=== PATIENT | male | born 1985 | race American Indian/Alaskan Native ===

== ENCOUNTER 2018-01-30 14:04 | Emergency (ER) | payer SELFPAY ==
[2018-01-30 16:32] VITALS: BP 137/87
[2018-01-30] MEDS ORDERED: NORCO 5/325 PO ONE (17:50)
[2018-01-30] MEDS ORDERED: TORADOL IM ONE (17:50)
--- NOTE | 2018-01-30 17:55 | Emergency Department Report ---
HPI - General Chief Complaint: Extremity Injury, Lower - HPI HPI: The patient is 32 yo male whom presents for evaluation of back pain. The patient reports left lower back pain since 11 AM this morning, moderate to severe, sharp in quality, radiating to the left leg, exacerbated with ambulation. The patient denies blunt trauma to the back, fall, fever, chills, night sweats, saddle anesthesia, paresthesias, numbness or tingling in the legs , leg weakness, urine or bowel incontinence or retention, difficulty ambulating , or other focal neurological deficits. The patient also denies redness or swelling to the back, IV drug use, history of cancer. ED Past Medical Hx - Past Medical History Previous Medical History?: No - Surgical History Past Surgical History?: No - Social History Smoking Status: Never Smoker - Medications Home Medications: Home Medications Medication Instructions Recorded Confirmed Last Taken Type Acetaminophen/Codeine [Tylenol #3] 1 tab PO Q6H PRN #20 tab 01/03/16 Unknown Rx Cephalexin [Keflex] 500 mg PO Q6HR #40 capsule 01/03/16 Unknown Rx Ibuprofen [Motrin] 600 mg PO Q8H PRN #40 tablet 01/03/16 Unknown Rx Ibuprofen [Motrin] 800 mg PO Q8HR PRN #15 tablet 01/30/18 Unknown Rx traMADol [Ultram 50 MG tab] 50 mg PO Q6HR PRN #12 tablet 01/30/18 Unknown Rx ED Review of Systems ROS: Stated complaint: LEFT LEG PAIN Other details as noted in HPI Constitutional: denies: fever ENT: denies: throat or neck pain Respiratory: denies: cough, shortness of breath Cardiovascular: denies: chest pain Endocrine: denies unexplained weight loss or gain Gastrointestinal: denies: abdominal pain, nausea Genitourinary: denies: dysuria Musculoskeletal: reports back and leg pain denies: leg swelling Skin: denies: rash Neurological: denies: headache Hematological/Lymphatic: denies: easy bleeding or easy bruising Psych: denies sadness or hopelessness Physical Exam - Physical Exam Vital Signs: Vital Signs 01/30/18 16:29 Temperature 98.8 F Pulse Rate 86 Respiratory 16 Rate Blood Pressure 137/87 O2 Sat by Pulse 100 Oximetry Physical Exam: General: well-nourished, well-developed, no acute distress Head: Normocephalic, atraumatic Eyes: normal sclera ENT: Mucous membranes are pink and moist Neck: trachea midline, neck supple, No neck stiffness, no cervical adenopathy Respiratory: Breath sounds equal bilaterally, no wheezing, rales, or rhonchi Cardio: S1 and S2 present, no murmurs, rubs, gallops, capillary refill is brisk Abdomen: Normoactive bowel sounds, soft abdomen, no rigidity, no guarding or rebound tenderness Chest WALL/Back: Tenderness to palpation present to left lumbar paraspinal musculature, no midline back tenderness overlying spinous process, normal active range of motion at the hip intact, no spinous step-off or obvious deformity, ipsi-lateral and contralateral straight leg raise tests are negative. On extremity testing, compartments are soft and pliable, no obvious gross motor strength deficit, 5+ motor strength, including extension of the great toe bilaterally, no muscular atrophy, spasticity, fasciculations, or clonus, no obvious gross sensation deficit including web space between 1st and 2nd toes, reflexes 2+ & symmetric on DTR testing at the knee and ankle joints, distal pulses intact. Musc: No pitting edema Skin: No rash Neuro: no facial drooping, normal speech Psych: Normal affect ED Course Vital Signs 01/30/18 16:29 Temperature 98.8 F Pulse Rate 86 Respiratory 16 Rate Blood Pressure 137/87 O2 Sat by Pulse 100 Oximetry ED Medical Decision Making - Medical Decision Making The patient was seen and examined by myself. The patient is placed on a threat monitoring analyst and continuous pulse ox. On initial evaluation, the patient was found to be in no distress. No findings on exam concerning for cauda equina syndrome, spinal stenosis, or epidural abscess. As the patient has no midline tenderness on exam, no neuro deficits, and no findings concerning for emergent etiology of their back pain, imaging will not be obtained at this time. The patient is given an IM dose of Toradol for pain medicine. The patient was reevaluated and reported that their pain significantly improved. The patient is stable for discharge with outpatient follow-up. The patient is given follow-up and return instructions. The patient expressed understanding and agreed with the plan. The patient is discharged in stable condition. Critical care attestation.: If time is entered above; I have spent that time in minutes in the direct care of this critically ill patient, excluding procedure time. ED Disposition Clinical Impression: Acute left-sided low back pain without sciatica Disposition: TO HOME OR SELFCARE Is pt being admited?: No Does the pt Need Aspirin: No Condition: Stable Instructions: Back Pain (ED), Low Back Strain (ED) Referrals: PRIMARY CARE, [Primary Care Provider] - 3-5 Days BERONICA FAGAN MD [Staff Physician] - 3-5 Days Time of Disposition: 17:55
== END 2018-01-30 18:19 | disposition home or self-care (01) ==
LOC: ED 14:04
DX: M54.5 Low back pain (principal)
CPT/HCPCS: 96372; 99283; J1885